=== PATIENT | female | born 1985 ===

== ENCOUNTER 2023-10-12 17:13 | Observation (INO) | payer BC ==
[~2023-10-12 17:13] MED LIST: ACETAMINOPHEN TAB 500 MG TAB PO PRN
[2023-10-12] MEDS: LACTATED RINGERS 1,000 ML IV ONE ×2 (17:33→19:35)
[2023-10-12] MEDS: HYDROmorphone 1 MG/ML 1 ML SYRINGE IVP STA (17:36)
[2023-10-12 17:40] LABS: Appearance,Urine Cloudy (Clear); Bilirubin,Urine Negative (Negative); Blood,Urine Moderate (Negative); Color,Urine Light Yellow; Glucose,Urine (UA) Negative (Negative); Ketones,Urine Negative (Negative); Leukocyte Esterase,Urine Negative (Negative); Mucus,Urine Rare /hpf; Nitrite,Urine Negative (Negative); Protein,Urine Trace (Negative); RBC,Urine 139 /hpf (0-5); Specific Gravity,Urine 1.017 (1.001-1.035); Squamous Epithelial Cell,Urine 15 /hpf (0-4); Urobilinogen,Urine <2.0 mg/dL (<2.0); WBC,Urine 2 /hpf (0-5)
[2023-10-12] MEDS: ACETAMINOPHEN IV (For NPO) 1,000 MG in EMPTY BAG 1 BAG IVPB STA (17:49)
[2023-10-12 18:09] LABS: Basophils % (A) 0 %; Eosinophils # (A) 0.1 k/uL (0-0.7); Eosinophils % (A) 1 %; HCT 35.9 % (34.0-46.0); HGB 11.6 gm/dL (11.4-16.0); Lymphocytes # (A) 1.4 k/uL (1.0-4.8); Lymphocytes % (A) 13 %; MCH 27.1 pg (25.0-35.0); MCHC 32.3 g/dL (31.0-37.0); MCV 83.9 fL (80.0-100.0); Mean Platelet Volume 8.2; Monocytes # (A) 0.4 k/uL (0-1.0); Monocytes % (A) 4 %; Neutrophils # (A) 8.4 k/uL (1.3-7.7); Neutrophils % (A) 80 %; Platelet Count 279 k/uL (150-450); RBC 4.28 m/uL (3.80-5.40); RDW 14.3 % (11.5-15.5); WBC 10.5 k/uL (3.8-10.6)
[2023-10-12] MEDS ORDERED: HYDROmorphone 1 MG/ML 1 ML SYRINGE IVP PRN (19:21)
--- NOTE | 2023-10-12 21:59 | P.HPOB ---
History of Present Illness H&P Date: 10/12/23 Chief Complaint: left flank pain 37 year old presents at 36 weeks 2 days with left flank pain radiating to her groin. She thought she was in labor but she is not toby and cervix is closed. heart tones category 1. She has a history of hyperthyroid and is on Thiamazole 10mg and doing NSTs twice a week. She is being seen at [facility]. Review of Systems All systems: negative Constitutional: Denies chills, Denies fever Eyes: denies blurred vision, denies pain Ears, nose, mouth and throat: Denies headache, Denies sore throat Cardiovascular: Denies chest pain, Denies shortness of breath Respiratory: Denies cough Gastrointestinal: Denies abdominal pain, Denies diarrhea, Denies nausea, Denies vomiting Genitourinary: Denies dysuria, Denies hematuria Musculoskeletal: Denies myalgias Integumentary: Denies pruritus, Denies rash Neurological: Denies numbness, Denies weakness Psychiatric: Denies anxiety, Denies depression Endocrine: Denies fatigue, Denies weight change Past Medical History History of Any Multi-Drug Resistant Organisms: None Reported Smoking Status: Never smoker Medications and Allergies Home Medications Medication Instructions Recorded Confirmed Type Vit No.180/Iron/Folic 1 tab PO ONCE 10/12/23 10/12/23 History [ Plus Vitamin-Mineral] Allergies Allergy/AdvReac Type Severity Reaction Status Date / Time No Known Allergies Allergy Verified 10/12/23 17:20 Exam Osteopathic Statement: *. No significant issues noted on an osteopathic structural exam other than those noted in the History and Physical/Consult. Vital Signs Temp Pulse Resp BP 10/12/23 17:17 98.9 F 108 H 18 136/72 Intake and Output 10/12/23 10/12/23 10/12/23 06:59 14:59 22:59 Other: Weight 90.718 kg Results Result Diagrams: 10/12/23 17:55 Abnormal Lab Results - Last 24 Hours (Table) 10/12/23 10/12/23 Range/Units 17:23 17:55 Neutrophils # 8.4 H (1.3-7.7) k/uL Urine Appearance Cloudy H (Clear) Urine Protein Trace H (Negative) Urine Blood Moderate H (Negative) Urine RBC 139 H (0-5) /hpf Ur Squamous Epith Cells 15 H (0-4) /hpf Urine Mucus Rare H (None) /hpf Assessment and Plan (1) Renal stone Current Visit: Yes Status: Acute Code(s): N20.0 - CALCULUS OF KIDNEY SNOMED Code(s): 05377307 (2) Hyperthyroidism Current Visit: Yes Status: Acute Code(s): E05.90 - THYROTOXICOSIS, UNSP WITHOUT THYROTOXIC CRISIS OR STORM SNOMED Code(s): 69448786 (3) 36 weeks gestation of Current Visit: Yes Status: Acute Code(s): Z3A.36 - 36 WEEKS GESTATION OF SNOMED Code(s): 57992257 Plan: 1. cont home meds 2. iv fluids 3. iv pain meds until she can tolerate oral. 4. UA and CBC do not indicate infection at this time.
[2023-10-13 05:59] VITALS: BP 114/60; PULSE 81; RESP 19; TEMP 98.7
--- NOTE | 2023-10-13 07:53 | P.DS ---
Providers Date of admission: 10/12/23 19:00 Expected date of discharge: 10/13/23 Attending physician: Donita Mack Primary care physician: Stated None - Discharge Diagnosis(es) (1) Renal stone Current Visit: Yes Status: Acute (2) Hyperthyroidism Current Visit: Yes Status: Acute (3) 36 weeks gestation of Current Visit: Yes Status: Acute Hospital Course: Patient presented at 36 weeks complaining of left flank pain. By symptoms and excessive blood in the urine I diagnosed her with a kidney stone. She had one dose of Dilaudid and one dose of the affirmative and her pain is improved. She's been passing some small stones. She still has a little bit of left flank pain when she urinates. I will discharge patient home on oral medication to follow-up with her own physician as needed and as scheduled. Plan - Discharge Summary New Discharge Prescriptions: No Action Vit No.180/Iron/Folic [ Plus Vitamin-Mineral] 1 tab PO ONCE Discharge Medication List Vit No.180/Iron/Folic [ Plus Vitamin-Mineral] 1 tab PO ONCE 10/12/23 [History] Discharge Disposition: HOME SELF-CARE
[2023-10-13] MEDS ORDERED: methIMAzole 5 MG TAB PO SCH (09:00)
--- NOTE | 2023-10-16 07:40 | P.MSEPDOC ---
Presenting Problems - Arrival Data Date of Arrival on Unit: 10/12/23 Time of Arrival on Unit: 15:01 Mode of Transport: Wheelchair - Complaint OB-Reason for Admission/Chief Complaint: Pain Comment: acute left sided sharp pain, blood on toilet paper Medical History - Information : 2 Para: 0 Term: 0 : 0 Abortions: Spontaneous or Elective: 0 Number of Living Children: 0 - Gestational Age Gestational Age by NANY (wks/days): 36 Weeks and 2 Days Review of Systems - Review of Systems Constitutional: No problems Breast: No problems ENT: No problems Cardiovascular: No problems Respiratory: No problems Gastrointestinal: No problems Genitourinary: No problems Musculoskeletal: No problems Neurological: No problems Skin: No problems Vital Signs - Temperature Temperature: 98.7 F Temperature Source: Oral - Pulse Right Brachial Pulse Rate: 81 Pulse Assessment Method: Pulse Oximetry - Respirations Respiratory Rate: 19 Oxygen Delivery Method: Room Air O2 Sat by Pulse Oximetry: 97 - Blood Pressure Right Arm Sitting Blood Pressure: 114/60 Blood Pressure Mean: 78 Blood Pressure Source: Automatic Cuff Medical Screen Scoring - Cervical Exam Dilation (cm): 0 Effacement (%): 0 Station: -3 Membranes: Intact - Uterine Contractions Frequency From (mins): 0 - Assessment - Baby A Baseline FHR: 150 Heart Rate - NICHD Category: Category I (Normal) NST: Reactive Physician Notification - Physician Notified Physician Notified Date: 10/12/23 Physician Notified Time: 18:30 Physician: Donita Mack Order Received: Yes - Notification Comment Comment: Admit for obv, pain control, iv fluids, urine strain Maternal Triage Index - Maternal Triage Index Presenting for scheduled procedure w/no complaint: No - Stat/Priority 1 Stat Priority 1: No - Urgent/Priority 2 Urgent Priority 2: No - Prompt/Priority 3 Prompt Priority 3: Yes Criteria Met for Priority 3: 36.2 weeks left flank pain Disposition - Disposition OB Disposition: Admit, Observe Discharge Date: 10/13/23 Discharge Time: 09:07 I agree with the RN Medical Screening Exam: Yes Case reviewed; plan agreed upon as documented in EMR&OBIX.: Yes Diagnosis: CALCULUS OF KIDNEY
== END 2023-10-13 09:05 | disposition home or self-care (01) ==
LOC: FBPOP 17:13 → 4FBP 19:00 → INTOOBSV 19:00 → UNDODISIN 10-13 09:05
PROVIDERS: ADMIT Obstetrics & Gynecology; ATTEND Obstetrics & Gynecology
DX: O09.523 Supervision of elderly multigravida, third trimester (principal); O99.283 Endocrine, nutritional and metabolic diseases complicating pregnancy, third trimester; O26.833 Pregnancy related renal disease, third trimester; N20.0 Calculus of kidney; E05.90 Thyrotoxicosis, unspecified without thyrotoxic crisis or storm; Z3A.36 36 weeks gestation of pregnancy
CPT/HCPCS: 96361; 96365 ×2; 96366; 96367; 59025; 99214; 96375; 85025; 81001; G0378 ×2; J1170; J0131

== ENCOUNTER 2024-05-20 11:33 | Emergency (ER) | payer BC ==
--- NOTE | 2024-05-20 12:20 | ED ---
Female Urogenital HPI - General Chief complaint: Vaginal Bleeding Stated complaint: Vaginal bleeding-10 weeks preg Time Seen by Provider: 05/20/24 12:17 Source: patient, RN notes reviewed Mode of arrival: ambulatory Limitations: no limitations - History of Present Illness Initial comments: 38-year-old female at approximately 10 weeks gestation presenting to the ER for vaginal bleeding x 1 day. States she woke up this morning and noticed a small amount of vaginal bleeding with small clots. States she is going through less than 1 pad every 2 hours. States she had an appointment at [facility] [place] location last Monday where they performed a pelvic examination and an ultrasound and told her everything was normal. States she has had some vaginal discomfort since the pelvic exam. Denies any new abdominal pain. Denies urinary symptoms. - Related Data Home Medications Medication Instructions Recorded Confirmed Vit No.180/Iron/Folic 1 tab PO ONCE 10/12/23 10/12/23 [ Plus Vitamin-Mineral] Allergies Allergy/AdvReac Type Severity Reaction Status Date / Time No Known Allergies Allergy Verified 05/20/24 11:47 Review of Systems ROS Statement: Those systems with pertinent positive or pertinent negative responses have been documented in the HPI. ROS Other: All systems not noted in ROS Statement are negative. Past Medical History Additional Past Medical History / Comment(s): Hyperthyroid History of Any Multi-Drug Resistant Organisms: None Reported Past Surgical History: Section Past Anesthesia/Blood Transfusion Reactions: No Reported Reaction Past Psychological History: No Psychological Hx Reported Smoking Status: Never smoker Past Alcohol Use History: None Reported Past Drug Use History: None Reported General Exam Limitations: no limitations General appearance: alert, in no apparent distress Respiratory exam: Present: normal lung sounds bilaterally. Absent: respiratory distress, wheezes, rales, rhonchi, stridor Cardiovascular Exam: Present: regular rate, normal rhythm, normal heart sounds. Absent: systolic murmur, diastolic murmur, rubs, gallop, clicks GI/Abdominal exam: Present: soft, normal bowel sounds. Absent: distended, tenderness, guarding, rebound, rigid Back exam: Absent: CVA tenderness (R), CVA tenderness (L) Neurological exam: Present: alert, oriented X3 Psychiatric exam: Present: normal affect, normal mood Skin exam: Present: warm, dry, intact, normal color. Absent: rash Course Vital Signs 05/20/24 11:44 Temperature 97.9 F Pulse Rate 120 H Respiratory 20 Rate Blood Pressure 142/93 O2 Sat by Pulse 96 Oximetry Medical Decision Making - Medical Decision Making Was pt. sent in by a medical professional or institution ([facility], [facility], urgent ca re, hospital, or usp...) When possible be specific @ -No Did you speak to anyone other than the patient for history (EMS, parent, family, police, friend...)? What history was obtained from this source @ -No Did you review nursing and triage notes (agree or disagree)? Why? @ -I reviewed and agree with nursing and triage notes Were old charts reviewed (outside hosp., previous admission, EMS record, old EKG, old radiological studies, urgent care reports/EKG's, usp records)? Report findings @ -No old charts were reviewed Differential Diagnosis (chest pain, altered mental status, abdominal pain women, abdominal pain men, vaginal bleeding, weakness, fever, dyspnea, syncope, he adache, dizziness, GI bleed, back pain, seizure, CVA, palpatations, mental health, musculoskeletal)? @ -Differential Vaginal Bleeding: Spontaneous , threatened , molar , ectopic , bloody show, incompetent cervix, abruptioplacenta, placenta previa, uterine rupture, dysfunctional uterine bleeding, hemorrhage, uterine fibroids, this is not meant to be an all-inclusive list. EKG interpreted by me (3pts min.). @ -None X-rays interpreted by me (1pt min.). @ -None done CT interpreted by me (1pt min.). @ -None done U/S interpreted by me (1pt. min.). @ -Ultrasound pelvis reveals single live intrauterine with calculated age of 11 weeks 0 days, small subchorionic hemorrhage What testing was considered but not performed or refused? (CT, X-rays, U/S, labs)? Why? @ -None What meds were considered but not given or refused? Why? @ -None Did you discuss the management of the patient with other professionals (professionals i.e. [facility], [facility], lab, RT, psych nurse, health care social worker, class c driver, teacher, sales and service officer, mental health case manager)? Give summary @ -No Was smoking cessation discussed for >3mins.? @ -No Was critical care preformed (if so, how long)? @ -No Were there social determinants of health that impacted care today? How? (Homelessness, low income, unemployed, alcoholism, drug addiction, transportation, low edu. Level, literacy, decrease access to med. care, skilled nursing, rehab)? @ -No Was there de-escalation of care discussed even if they declined (Discuss DNR or withdrawal of care, Hospice)? DNR status @ -No What co-morbidities impacted this encounter? (DM, HTN, Smoking, COPD, CAD, Cancer, CVA, ARF, Chemo, Hep., AIDS, mental health diagnosis, sleep apnea, morbid obesity)? @ -None Was patient admitted / discharged? Hospital course, mention meds given and route, prescriptions, significant lab abnormalities, going to OR and other pertinent info. @ -Discharge. This is a 38-year-old female at approximately 10 weeks gestation presenting with vaginal bleeding x 1 day. Abdomen is soft and nontender. hCG 59,064.9. Otherwise lab work unremarkable. Ultrasound reveals single live IUP with calculated ultrasound age 11 weeks 0 days, small subchorionic hemorrhage. Patient is blood type O+, RhoGAM not indicated at this time. Urinalysis remarka ble for many red blood cells. Discussed results with patient. Discussed subchorionic hemorrhage and threatened . Prescription given for repeat beta-hCG in 2 days. Appropriate return precautions and follow-up care discussed. All questions answered at bedside. Case was discussed with my ED attending Dr. Trejo Undiagnosed new problem with uncertain prognosis? @ -No Drug Therapy requiring intensive monitoring for toxicity (Heparin, Nitro, Insulin, Cardizem)? @ -No Were any procedures done? @ -No Diagnosis/symptom? @ -Threatened , subchorionic hemorrhage Acute, or Chronic, or Acute on Chronic? @ -Acute Uncomplicated (without systemic symptoms) or Complicated (systemic symptoms)? @ -Uncomplicated Side effects of treatment? @ -No Exacerbation, Progression, or Severe Exacerbation? @ -No Poses a threat to life or bodily function? How? (Chest pain, USA, GA, pneumonia, PE, COPD, DKA, ARF, appy, cholecystitis, CVA, Diverticulitis, Homicidal, Suicidal, threat to staff... and all critical care pts) @ -Not at this time - Lab Data Result diagrams: 05/20/24 12:35 12/09/24 12:35 Lab Results 05/20/24 05/20/24 05/20/24 Range/Units 12:35 12:35 12:35 WBC 8.6 (3.8-10.6) k/uL RBC 4.79 (3.80-5.40) m/uL Hgb 13.0 (11.4-16.0) gm/dL Hct 38.3 (34.0-46.0) % MCV 79.8 L (80.0-100.0) fL MCH 27.2 (25.0-35.0) pg MCHC 34.0 (31.0-37.0) g/dL RDW 13.5 (11.5-15.5) % Plt Count 312 (150-450) k/uL MPV 7.4 Neutrophils % 77 % Lymphocytes % 17 % Monocytes % 4 % Eosinophils % 2 % Basophils % 0 % Neutrophils # 6.6 (1.3-7.7) k/uL Lymphocytes # 1.4 (1.0-4.8) k/uL Monocytes # 0.3 (0-1.0) k/uL Eosinophils # 0.2 (0-0.7) k/uL Basophils # 0.0 (0-0.2) k/uL Sodium 136 L (137-145) mmol/L Potassium 3.8 (3.5-5.1) mmol/L Chloride 105 (98-107) mmol/L Carbon Dioxide 23 (22-30) mmol/L Anion Gap 8 mmol/L BUN 8 (7-17) mg/dL Creatinine 0.52 (0.52-1.04) mg/dL Est GFR (CKD-EPI)AfAm >90 (>60 ml/min/1.73 sqM) Est GFR (CKD-EPI)NonAf >90 (>60 ml/min/1.73 sqM) Glucose 112 H (74-99) mg/dL Plasma Lactic Acid Festus (0.7-2.0) mmol/L Calcium 9.3 (8.4-10.2) mg/dL Total Bilirubin 0.4 (0.2-1.3) mg/dL AST 17 (14-36) U/L ALT 13 (4-34) U/L Alkaline Phosphatase 74 (38-126) U/L Total Protein 6.8 (6.3-8.2) g/dL Albumin 3.9 (3.5-5.0) g/dL HCG, Quant 21703.9 mIU/mL Urine Color Yellow Urine Appearance Cloudy H (Clear) Urine pH 6.0 (5.0-8.0) Ur Specific [place] 1.032 (1.001-1.035) Urine Protein Trace H (Negative) Urine Glucose (UA) Negative (Negative) Urine Ketones Negative (Negative) Urine Blood Large H (Negative) Urine Nitrite Negative (Negative) Urine Bilirubin Negative (Negative) Urine Urobilinogen <2.0 (<2.0) mg/dL Ur Leukocyte Esterase Negative (Negative) Urine RBC 119 H (0-5) /hpf Urine WBC 7 H (0-5) /hpf Ur Squamous Epith Cells 8 H (0-4) /hpf Calcium Oxalate Crystal Occasional H (None) /hpf Urine Bacteria Rare H (None) /hpf Urine Mucus Occasional H (None) /hpf Blood Type Blood Type Recheck Bld Type Recheck Status 05/20/24 05/20/24 Range/Units 12:35 12:35 WBC (3.8-10.6) k/uL RBC (3.80-5.40) m/uL Hgb (11.4-16.0) gm/dL Hct (34.0-46.0) % MCV (80.0-100.0) fL MCH (25.0-35.0) pg MCHC (31.0-37.0) g/dL RDW (11.5-15.5) % Plt Count (150-450) k/uL MPV Neutrophils % % Lymphocytes % % Monocytes % % Eosinophils % % Basophils % % Neutrophils # (1.3-7.7) k/uL Lymphocytes # (1.0-4.8) k/uL Monocytes # (0-1.0) k/uL Eosinophils # (0-0.7) k/uL Basophils # (0-0.2) k/uL Sodium (137-145) mmol/L Potassium (3.5-5.1) mmol/L Chloride (98-107) mmol/L Carbon Dioxide (22-30) mmol/L Anion Gap mmol/L BUN (7-17) mg/dL Creatinine (0.52-1.04) mg/dL Est GFR (CKD-EPI)AfAm (>60 ml/min/1.73 sqM) Est GFR (CKD-EPI)NonAf (>60 ml/min/1.73 sqM) Glucose (74-99) mg/dL Plasma Lactic Acid Festus 1.4 (0.7-2.0) mmol/L Calcium (8.4-10.2) mg/dL Total Bilirubin (0.2-1.3) mg/dL AST (14-36) U/L ALT (4-34) U/L Alkaline Phosphatase (38-126) U/L Total Protein (6.3-8.2) g/dL Albumin (3.5-5.0) g/dL HCG, Quant mIU/mL Urine Color Urine Appearance (Clear) Urine pH (5.0-8.0) Ur Specific [place] (1.001-1.035) Urine Protein (Negative) Urine Glucose (UA) (Negative) Urine Ketones (Negative) Urine Blood (Negative) Urine Nitrite (Negative) Urine Bilirubin (Negative) Urine Urobilinogen (<2.0) mg/dL Ur Leukocyte Esterase (Negative) Urine RBC (0-5) /hpf Urine WBC (0-5) /hpf Ur Squamous Epith Cells (0-4) /hpf Calcium Oxalate Crystal (None) /hpf Urine Bacteria (None) /hpf Urine Mucus (None) /hpf Blood Type O Positive Blood Type Recheck No Previous Record Bld Type Recheck Status [facility] ONLY Disposition Clinical Impression: Threatened miscarriage, Subchorionic hemorrhage in first trimester Disposition: HOME SELF-CARE Condition: Stable Instructions (If sedation given, give patient instructions): Threatened Miscarriage (ED), Subchorionic Hemorrhage (ED) Additional Instructions: Follow-up with OB in 2 days for repeat beta-hCG. Your beta hCG levels were 59,064.9 today. Please return to the Emergency Department if symptoms worsen or any other concerns. Is patient prescribed a controlled substance at d/c from ED?: No Referrals: None,Stated [Primary Care Provider] - 1-2 days Time of Disposition: 14:18
[2024-05-20 12:44] LABS: Basophils % (A) 0 %; Eosinophils # (A) 0.2 k/uL (0-0.7); Eosinophils % (A) 2 %; HCT 38.3 % (34.0-46.0); Lymphocytes # (A) 1.4 k/uL (1.0-4.8); Lymphocytes % (A) 17 %; MCH 27.2 pg (25.0-35.0); MCV 79.8 fL (80.0-100.0); Mean Platelet Volume 7.4; Monocytes # (A) 0.3 k/uL (0-1.0); Monocytes % (A) 4 %; Neutrophils # (A) 6.6 k/uL (1.3-7.7); Neutrophils % (A) 77 %; Platelet Count 312 k/uL (150-450); RBC 4.79 m/uL (3.80-5.40); RDW 13.5 % (11.5-15.5); WBC 8.6 k/uL (3.8-10.6)
[2024-05-20 12:55] LABS: ALT 13 U/L (4-34); AST 17 U/L (14-36); African American GFR (CKD) >90 (>60 ml/min/1.73 sqM); Albumin 3.9 g/dL (3.5-5.0); Alkaline Phosphatase 74 U/L (38-126); Anion Gap 8 mmol/L; Blood Urea Nitrogen 8 mg/dL (7-17); Calcium 9.3 mg/dL (8.4-10.2); Carbon Dioxide 23 mmol/L (22-30); Chloride 105 mmol/L (98-107); Glucose 112 mg/dL (74-99); Non-African American GFR(CKD) >90 (>60 ml/min/1.73 sqM); Potassium 3.8 mmol/L (3.5-5.1); Sodium 136 mmol/L (137-145); Total Bilirubin 0.4 mg/dL (0.2-1.3); Total Protein 6.8 g/dL (6.3-8.2)
[2024-05-20 13:17] LABS: Appearance,Urine Cloudy (Clear); Bacteria,Urine Rare /hpf; Bilirubin,Urine Negative (Negative); Blood,Urine Large (Negative); Calcium Oxalate Crystals,Urine Occasional /hpf; Color,Urine Yellow; Glucose,Urine (UA) Negative (Negative); Ketones,Urine Negative (Negative); Leukocyte Esterase,Urine Negative (Negative); Mucus,Urine Occasional /hpf; Nitrite,Urine Negative (Negative); Protein,Urine Trace (Negative); RBC,Urine 119 /hpf (0-5); Specific Gravity,Urine 1.032 (1.001-1.035); Squamous Epithelial Cell,Urine 8 /hpf (0-4); Urobilinogen,Urine <2.0 mg/dL (<2.0); WBC,Urine 7 /hpf (0-5)
[2024-05-20 13:38] LABS: HCG,Quantitative Serum 59064.9 mIU/mL
--- NOTE | 2024-05-20 13:38 | US ---
EXAMINATION TYPE: Transabdominal DATE OF EXAM: 05/20/2024 1:16 PM COMPARISON: NONE CLINICAL INDICATION: Female, 38 years old with history of vaginal bleeding in ; spotting beg an early this morning TECHNIQUE: Transabdominal (TA) with grayscale and color Doppler imaging including first trimester pre gnancy. FINDINGS: EXAM MEASUREMENTS: GESTATIONAL AGE / DATING Physician Established: (10 weeks/5 days) EDC: Dates by LMP: LMP unknown Dates by First Scan: No previous this is first scan Dates by Current Scan for: (11 weeks/0 days) EDC: 12/09/24 MATERNAL ANATOMY Uterus: 14.2x6.0x10.7cm Right Ovary: 4.2x3.3x1.5cm Left Ovary: obscured by bowel Post CDS / Adnexa: wnl Presence of free fluid: no Presence of corpus luteal cyst: not visualized Presence of subchorionic bleed: 2.5x2.3x2.2cm heterogenous area noted adjacent to the gestational sac . several smaller more anechoic areas noted around gestational sac GESTATION / SURVEY CRL: 4.06 (11 weeks/0 days) Gestational Sac morphology: Normal Yolk Sac (normal less than 6mm): 5 mm Heart Rate: 165 pm Rhythm: Normal IUP: Viable IUP Date of LMP: unknown Beta HcG (if available): Not available at this time IMPRESSION: 1. Single live intrauterine with calculated ultrasound age of 11 weeks 0 days crown rump le ngth. 2. Small subchorionic hemorrhage. [facility], , 05/20/2024 1:36 PM
[2024-05-20 14:40] VITALS: BP 127/83; PULSE 90; RESP 18; TEMP 98.6
== END 2024-05-20 15:08 | disposition home or self-care (01) ==
LOC: EC 11:33
DX: O09.91 Supervision of high risk pregnancy, unspecified, first trimester (principal); O20.0 Threatened abortion; Z3A.11 11 weeks gestation of pregnancy
CPT/HCPCS: 36415; 76801; 80053; 81001; 83605; 84702; 85025; 86900; 86901; 99284